=== PATIENT | female | born 2005 | race Caucasian/White ===

== ENCOUNTER 2025-04-28 06:49 | Emergency (ER) | payer BC, MEDICAID, SELFPAY ==
[2025-04-28 06:56] VITALS: BP 119/62; PULSE 89; RESP 16; O2SAT 100
--- NOTE | 2025-04-28 07:05 | W.ED.GENAD ---
Discharge Plan Disposition Patient Disposition: Against Medical Advice Discharge Details Clinical Impression: Back pain Primary Care Provider: None,None ED Provider: Lencho Pimentel [place] Meds and New Rx's Prescriptions: New lidocaine [Lidoderm] 5 % adhesive patch,medicated 1 patch topical DAILY Qty: 15 0RF Rx Instructions: leave on most painful area for up to 12 hrs diazepam 5 mg tablet 5 mg PO QHS PRNQty: 1 0RF Continued sertraline 100 mg tablet 100 mg PO DAILY dextroamphetamine-amphetamine [Adderall XR] 30 mg capsule,extended release 24hr 30 mg PO DAILY dextroamphetamine-amphetamine [Adderall] 10 mg tablet 10 mg PO DAILY Patient Comments: Taken in the evening per pt 04/28/25 cetirizine [24Hour Allergy] 10 mg tablet 10 mg PO DAILY PRN Discharge Instructions Instructions: Exercises for Upper Back Pain Additional Instructions: You were seen in the emergency department for your back pain. As discussed, please return if you develop any numbness or tingling between your legs if you take any falls or if you lose control of your bowel or bladder. You are receiving 1 medicine which you should take today. This medication can make you drowsy. Please not drive or drink alcohol after taking this medication. For your pain please take medications as follows: 1. Take acetaminophen (Tylenol), 650 mg tablets every 6 hours [2. Take ibuprofen (Advil), 400 mg every 6 hours.] Discharge Data Discharge Date/Time-TO BE ENTERED AT DEPARTURE: 04/28/25 07:46 HPI General Date/Time Provider Initiated Documentation: 04/28/25 07:05. HPI Narrative: MDM This is an overall very well-appearing normothermic and not tachycardic 20-year-old female with atraumatic generalized back pain lacking red flags for which patient will receive empiric trial of discharge with expectant outpatient management. No pain out of proportion to suggest necrotizing soft tissue infection. No rash to back to suggest zoster. No saddle anesthesia nor loss of bowel or bladder control to suggest cauda equina syndrome. No history of IV drug use to suggest increased risk for spinal epidural abscess. No history of malignancy to suggest increased risk for pathological fracture. No abdominal pain to suggest ruptured AAA. Intact lower extremity pulses so I am not concerned for critical ischemia so I do not feel patient requires a CT angiogram of her abdomen pelvis with runoffs. No fevers making my suspicion lower for spinal epidural abscess. No recent spinal instrumentation and no history of anticoagulation so doubt spinal epidural hematoma. No nuchal rigidity to suggest meningitis. No dysuria nor frequency to suggest UTI. No history of nephrolithiasis to suggest ureterolithiasis. No abdominal pain to suggest referred pain from appendicitis. Clear equal breath sounds and no hypoxia nor chest trauma so my suspicion is low for pneumothorax. Patient and I discussed dosing acetaminophen and ibuprofen. I prescribed her Lidoderm patches. She will take the day off from work today. We discussed back strengthening exercises once her symptoms improved. We discussed wearing supportive shoes at work. We discussed that she should return if she developed any loss of bowel or bladder control saddle anesthesia or any rash to her back. She understood her return indications and was going to be discharged with an empiric trial of expectant outpatient management. At the time of discharge I was planning on obtaining urine test to ensure that the patient was not . She reported that there was no chance for her to be . Nonetheless she was given some raphael briana and asked to provide a urine sample. She elected to leave AGAINST MEDICAL ADVICE. 1. I explained the current situation and condition to the patient. 2. I explained the recommended treatment for this condition ?urine test to ensure that she is not 3. I explained the risk of not having the recommended treatment ?undiagnosed 4. The patient understands this information has no questions, and repeated back this information. 5. The patient states that they need to leave and will return if her symptoms worsen 6. Mental status is lucid and the patient has decision-making capacity. 7. Patient is withdrawing her complaints and for care HPI This is a patient with a history of back pain presenting with worsening symptoms. 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 The pain is significant enough to disrupt her sleep, forcing her to seek relief by sitting on her couch with a heating pad. She describes the pain as initially localized to one spot in her upper back but has since spread across her entire back. She also mentions a perceived decrease in lung capacity, which she believes may be due to the pain. She has been managing the pain with Motrin, taking two capsules twice daily, once at 7:00 AM and again at 8:00 PM. She has not taken Tylenol. This is her first experience with such pain, which has been present for 2 to 3 weeks and has recently worsened. She is not currently on any blood thinners and reports no loss of bowel or bladder control, falls, fevers, IV drug use, recent back surgeries, or history of cancer or malignancy. She also reports no nausea, vomiting, chest pain, or breathing difficulties. Exam General: Well-appearing in no acute distress speaking in complete sentences. Head: Normocephalic, atraumatic. Eye: Extraocular eye movements intact. No conjunctival injection. No scleral icterus. Ear, nose, mouth, throat: Grossly normal inspection. Normal voice, handling secretions normally. Neck: Trachea midline. Cardiovascular: Well-perfused distal extremities. Clear lungs bilaterally Respiratory: Nonlabored respiration. Regular rate and rhythm Gastrointestinal: Nondistended abdomen. Musculoskeletal: 5 out of 5 lower extremity strength. 5 out of 5 bilateral upper extremity strength hand grasp. 2+ patellar reflexes. Sensation intact bilateral upper and lower extremities. Intact PT and DP pulses. Skin: Normal for age and race, grossly normal temperature and turgor. No acute rash. Neurologic: Alert and appropriate, no apparent acute deficits. Psychiatric: Mood and manner are appropriate. Grooming and personal hygiene are appropriate. Related Data Home Medications ?Medication ?Instructions ?Recorded ?Confirmed cetirizine 10 mg tablet (24Hour 10 mg PO DAILY PRN 04/28/25 04/28/25 Allergy) dextroamphetamine-amphetamine 10 10 mg PO DAILY 04/28/25 04/28/25 mg tablet (Adderall) dextroamphetamine-amphetamine ER 30 mg PO DAILY 04/28/25 04/28/25 30 mg 24hr capsule,extend release (Adderall XR) diazepam 5 mg tablet 5 mg PO QHS PRN #1 tab 04/28/25 lidocaine 5 % topical patch 1 patch topical DAILY #15 ea 04/28/25 (Lidoderm) sertraline 100 mg tablet 100 mg PO DAILY 04/28/25 04/28/25 Previous Rx's ?Medication ?Instructions ?Recorded diazepam 5 mg tablet 5 mg PO QHS PRN #1 tab 04/28/25 lidocaine 5 % topical patch 1 patch topical DAILY #15 ea 04/28/25 (Lidoderm) Allergies Allergy/AdvReac Type Severity Reaction Status Date / Time No Known Allergies Allergy Verified 04/28/25 06:59 General Stated Complaint: Nk/Back Pain ARI: 4 Course Vital Signs Vital signs: Vital Signs Pulse 89 04/28/25 06:56 Respiratory Rate 16 04/28/25 06:56 Blood Pressure 119/62 04/28/25 06:56 Pulse Oximetry 100 04/28/25 06:56 Pulse 89 04/28/25 06:56 Respiratory Rate 16 04/28/25 06:56 Blood Pressure 119/62 04/28/25 06:56 Blood Pressure Position Sitting 04/28/25 06:56 Pulse Oximetry 100 04/28/25 06:56 Oxygen Delivery Method Room Air 04/28/25 06:56 Oxygen Flow Rate 0 04/28/25 06:56 Pain Level 8 04/28/25 06:56 PFSH All Active Problems (Updated 04/28/25 @ 07:24 by Lencho Pimentel MD) Back pain (Acute) Social History Smoking/Tobacco Use Status: Current every day Tobacco Type: e-cigarettes Smoking risk assessment performed?: Yes Alcohol Intake: never Drug use: Never Substance use type: does not use Details: Pt states she vapes daily 04/28/25 Do you feel safe at home: Yes Do you feel safe in your relationship?: Yes
[2025-04-28 07:21] VITALS: TEMP 36.5
== END 2025-04-28 07:46 | disposition left against medical advice (07) ==
LOC: ER 07:53
PROVIDERS: Emergency Provider Emergency Medicine
DX: M54.9 Dorsalgia, unspecified (principal)
CPT/HCPCS: 99283 ×2